=== PATIENT | female | born 1950 | race African-American/Black ===

== ENCOUNTER → 2017-04-24 | Outpatient (CLI) | payer MEDICARE, OTHER ==
[~2017-04-24] MED LIST: COUMADIN6 MG PO; LORTAB 10-3251 EACH PO; PERCOCET10 PO; VITAMIN B122500 MCG; ZESTORETIC 10-1 EAC1; [UNRECOGNIZED DRUG - OTHER]
--- NOTE | ~2017-04-24 | CR63 ---
[facility] A Service of [facility] & [facility] RADIOLOGY TEXT RESULTS PATIENT: MELINDA BUNCH LOCATION: [facility] : 54 UNIT #: [id number] AGE: [address]: Jacob Ervin MD SEX: F ORDER DR: [id number] [facility] [address] [place], [place] [address] [id number] O MR#: [id number] Acc #: [id number] NAME: MELINDA BUNCH : 1950 SEX: F STUDY DATE/TIME: 04/24/2017 14:44 UNIT: [facility] ROOM: STUDY DESCRIPTION: CR Chest 2 View Attending Physician: Jacob Ervin M.D. Referring Physician: Jacob Ervin M.D. Ordering Physician: Jacob Ervin M.D. Primary Care Physician: Walter Bustamante M.D. MEDICAL IMAGING REPORT This report is preliminary unless electronic signature is present EXAM Chest 04/24/2017 HISTORY 67-year-old female preop clearance total left knee arthroplasty. Osteoarthritis left knee. COMPARISON Chest none. FINDINGS PA and lateral chest views show normal cardiac size and configuration. Aorta and hilar structures are preserved. Bilateral lungs are expanded and clear. IMPRESSION Negative chest. Dictated by... Michael Duron M.D. THIS IS AN ELECTRONICALLY VERIFIED REPORT Michael Duron M.D. at 04/25/2017 8:13 AM MARTY/cole TD: 04/24/2017 21:45 JOB #: [id number] MEDICAL IMAGING REPORT Page 1 of 1 COPY
--- NOTE | ~2017-04-24 | EKG ---
PATIENT: MELINDA BUNCH UNIT #: [id number] Ventricular Rate: 70 BPM Atrial Rate: 70 BPM P-R Interval: 168 ms QRS Duration: 76 ms Q-T Interval: 406 ms QTC Calculation(Bezet): 438 ms P [place]: 9 degrees Calculated R [place]: 13 degrees Calculated T [place]: -6 degrees Diagnosis Line: Normal sinus rhythm Diagnosis Line: Normal ECG Diagnosis Line: No previous ECGs available Diagnosis Line: Confirmed by DOMI FRANCE MD ([id number]) on 04/24/2017 Diagnosis Line: 6:32:51 PM INTERPRETING MD: EDILMA FRASER
--- NOTE | ~2017-04-24 | CO ---
Unit #: [id number] #: [id number] Patient: MELINDA BUNCH [id number] [address] [place], [place] [address] [id number] O MR#: [id number] NAME: MELINDA BUNCH ROOM: Age: 67 Sex: F Admission Date: 04/24/2017 : 1950 Attending Physician: Jacob Ervin M.D. Primary Care Physician: Walter Bustamante M.D. Consultation Date: 04/24/2017 CONSULTATION REPORT REASON FOR CONSULTATION Preoperative medical evaluation prior to left total knee arthroplasty scheduled by Dr. Ervin for May 08, 2017. HISTORY OF PRESENT ILLNESS The patient is a 67-year-old -[place]onegas[place] female who presents to preprocedural screening for the reasons indicated above. She has no complaints at the time of this interview today. She denies upper chest, upper back, arm, neck, jaw pain or pressure. Denies dyspnea on exertion, PND, and orthopnea. She has never been evaluated for obstructive sleep apnea. She denies history of myocardial infarction, congestive heart failure, CVA, TIA, diabetes, and kidney disease. She has been evaluated by Dr. Ervin and scheduled for the above referenced procedure. PAST MEDICAL HISTORY 1. Osteoarthritis. 2. Hypertension. 3. Obesity, BMI 34. 4. History of stomach ulcer. 5. GERD. PAST SURGICAL HISTORY 1. Stomach ulcer surgery and reversal of gastric bypass surgery. 2. Gastric bypass. 3. Cholecystectomy. 4. Lasik eye surgery. 5. Laparoscopic Natalie fundoplication. Patient denies a personal and family history of complications to anesthesia. ALLERGIES Denies latex allergy and denies medication allergies. CURRENT MEDICATIONS 1. Lortab 10/325 mg tab one p.o. five times daily for pain. 2. Zestoretic 10/12.5 mg tab one p.o. daily. 3. Viviscal hair supplement two tabs p.o. daily. 4. Vitamin B12 at 1000 mcg three times weekly. SOCIAL HISTORY Denies tobacco, ETOH use, and illicit drug use. FAMILY HISTORY Unit #: [id number] #: [id number] Patient: MELINDA BUNCH Per review of Dr. Ervin's office note, hypertension and coronary artery disease. REVIEW OF SYSTEMS A 10-point review of systems was conducted and otherwise negative except as indicated under history of present illness above. PHYSICAL EXAMINATION GENERAL: A 67-year-old -[place] female, awake and alert in no acute distress. VITAL SIGNS: Temperature 97.6, heart rate 64, respiratory rate 18, blood pressure 127/81, oxygen saturation 97% on room air. HEENT: Atraumatic, normocephalic. Sclerae anicteric. No discharge from eyes, ears, or nares. LYMPH: No preauricular, postauricular, tonsillar, submental, anterior, posterior, cervical adenopathy. ENDOCRINE: No thyromegaly, thyroid nodules, or tenderness. RESPIRATORY: Clear to auscultation in all cardenas bilaterally without wheezes, rhonchi, or rales. CARDIOVASCULAR: S1, S2. Regular rate and rhythm without murmur or rub. GASTROINTESTINAL: Bowel sounds positive x4. Soft, nontender, nondistended. EXTREMITIES: No edema, cyanosis, or clubbing. MUSCULOSKELETAL: Strength 5/5 all extremities bilaterally to flexion/extension. NEUROLOGIC: Alert and oriented x3. Speech clear. Follows directions during examination. DIAGNOSTIC STUDIES LABORATORY: WBC 8.5, hemoglobin 13.7, hematocrit 39.7, platelets 233,000. Sodium 140, potassium 3.6, chloride 103, CO2 of 29, glucose 84, BUN 14, creatinine 0.7, calcium 9.6. AST 21, ALT 18, alkaline phosphatase 85, bilirubin total 0.3, total protein 7.4, albumin 3.9. Urinalysis: Leukocyte esterase 1+, nitrite negative, WBC 2+, squamous cells moderate. Crystals, calcium oxalate, urine culture and sensitivity pending at this time. PT 10.5, INR 1.0. MRSA nasal swab report pending at this time. Blood type B positive. Antibody screen negative. IMAGING: Two-view chest x-ray report pending at this time. CARDIOVASCULAR: A 12-lead EKG: Normal sinus rhythm. Normal ECG. IMPRESSION The patient is a 67-year-old female who presents to preprocedural screening for: 1. Preoperative medical evaluation prior to left total knee arthroplasty as scheduled by Dr. Ervin. The patient's Robbins Revised Cardiac Risk Index is equal to 0.4 to 1%. This represents the patient's rate of cardiac , nonfatal myocardial infarction, nonfatal cardiac arrest based on information available today. This has been discussed in detail with the patient. She wishes to proceed with surgery as scheduled at this time. 2. Hypertension: Blood pressure stable today. Will monitor trend and adjust medications and IV fluids accordingly. 3. Questionable urinary tract infection: Patient is asymptomatic. Await urine culture and sensitivity report. Will call antibiotics into her pharmacy if indicated. I have ordered a straight cath urinalysis with culture and sensitivity if indicated the a.m. of Unit #: [id number] #: [id number] Patient: MELINDA BUNCH operating room. 4. Obesity: Body mass index of 34. 5. History of stomach ulcer without hematemesis or abdominal pain. 6. Gastroesophageal reflux disease. 7. Osteoarthritis. Thank you for allowing us to participate in the care of this patient. The patient tells me she has an appointment with her dentist for cleaning tomorrow and will have her dentist fax a note of dental clearance to Dr. Ervin's office. Will gladly follow the patient for postop medical management pending order of Dr. Ervin. Dictated by... Aliya Coates A.P.R.N. for Elisa Snowden M.D. BERE/vick TD: 04/24/2017 16:37 JOB #: [id number] CONSULTATION REPORT Page 1 of 1 X Aliya Coates APRN X CONSULTATION REPORT
[2017-04-24 12:27] LABS: URINE APPEARANCE CLOUDY; URINE BILIRUBIN NEG (NEG); URINE BLOOD NEG (NEG); URINE COLOR YELLOW; URINE GLUCOSE NEG (NEG); URINE KETONE NEG (NEG); URINE LEUKOCYTE ESTERASE 1+ (NEG); URINE NITRATE NEG (NEG); URINE PROTEIN NEG (NEG); URINE SPECIFIC GRAVITY 1.023 (1.003-1.035)
[2017-04-24 12:29] LABS: CULTURE INDICATED? YES; U HYALINE CASTS AUWI 0-2 /[LPF]; URINE BACTERIA AUWI 2+ (NEGATIVE); URINE SQUAMOUS EPITHELIAL CELL MOD /[HPF]
[2017-04-24 12:32] LABS: HEMATOCRIT 39.7 % (35.0-45.0); HEMOGLOBIN 13.7 gm/dL (12.0-16.0); MEAN CELL VOLUME 85.2 FL (83-96); MEAN CORPUSCULAR HEMOGLOBIN 29.4 PG (28-34); MEAN CORPUSCULAR HGB CONC 34.5 g/dL (30-36); MEAN PLATELET VOLUME 7.7 FL (6.5-11.5); RED BLOOD COUNT 4.66 X10e (3.90-5.30); RED CELL DISTRIBUTION WIDTH 13.2 % (11.0-15.5); WHITE BLOOD COUNT 8.5 X10e3 (4.0-10.5)
[2017-04-24 12:40] LABS: PROTHROMBIN TIME (PATIENT) 10.5 SECONDS (10.0-11.7)
[2017-04-24 12:45] LABS: URBCS1 AUWI 0-2 /[HPF] (0-2); URINE CRYSTALS CALCIUM OXALATE /[HPF]
[2017-04-24 12:53] LABS: ALBUMIN SERUM 3.9 g/dL (3.5-5.0); BILIRUBIN,TOTAL 0.3 mg/dL (0.2-2.0); CALCIUM SERUM 9.6 mg/dL (8.4-10.2); CREATININE SERUM 0.7 mg/dL (0.6-1.4); GLOM FILT RATE Estimated 105.4 mL/min (>60); POTASSIUM 3.6 mmol/L (3.5-5.1); PROTEIN TOTAL SERUM 7.4 g/dL (6.0-8.3)
[2017-04-24 13:15] LABS: URINE SOURCE CLEAN CATCH
== END | disposition home or self-care (01) ==
LOC: CAMB 08:00
PROVIDERS: Orthopaedic Surgery
DX: Z01.818 Encounter for other preprocedural examination (principal); M17.12 Unilateral primary osteoarthritis, left knee; I10 Essential (primary) hypertension; K25.9 Gastric ulcer, unspecified as acute or chronic, without hemorrhage or perforation; Z79.01 Long term (current) use of anticoagulants
CPT/HCPCS: 36415; 71020; 80053; 81003; 85027; 85610; 86850; 86900; 86901; 87070; 87086; 93005

== ENCOUNTER 2017-05-08 06:29 | Inpatient (IN) | payer MEDICARE, OTHER ==
[~2017-05-08] VITALS: Ht 175.3 cm; Wt 122.3 kg
--- NOTE | ~2017-05-08 | DS ---
Unit #: [id number] #: [id number] Patient: MELINDA BUNCH [id number] [address] [place], [place] [address] [id number] MR#: [id number] NAME: MELINDA BUNCH ROOM: 450 Age: 67 Sex: F Admission Date: 05/08/2017 : 1950 Discharge Date: 05/09/2017 Attending Physician: Jacob Ervin M.D. Referring Physician: Jacob Ervin M.D. Primary Care Physician: Walter Bustamante M.D. DISCHARGE SUMMARY ADMITTING DIAGNOSIS Primary localized osteoarthritis of left knee. DISCHARGE DIAGNOSIS Primary localized osteoarthritis of left knee. PROCEDURE IN THE HOSPITAL Left total knee. HOSPITAL COURSE The patient was admitted on 05/08 and underwent a left total knee replacement. Postoperatively, she has done well. Her pain is under control with oral pain medicine. Neurovascular exam is intact. Dressing is dry. It is felt she can be discharged home today. She is weightbearing as tolerated. We will check her protime again tomorrow and Monday. She is on Coumadin 6 mg at the time of discharge. Her condition on discharge is improved. Her medications are her routine home medicines plus Coumadin and her [place] for pain. Dictated by... Jacob Ervin M.D. NOLAN/giselle TD: 05/10/2017 11:14 JOB #: [id number] DISCHARGE SUMMARY Page 1 of 1 X Jacob Ervin MD X DISCHARGE SUMMARY
--- NOTE | ~2017-05-08 | OR ---
Unit #: [id number] #: [id number] Patient: MELINDA BUNCH [id number] [address] [place], [place] [address] [id number] I MR#: [id number] NAME: MELINDA BUNCH ROOM: [facility] Date of Procedure: 05/08/2017 Admission Date: 05/08/2017 Surgeon: Jacob Ervin M.D. : 1950 Attending Physician: Jacob Ervin M.D. Referring Physician: Jacob Erivn M.D. Primary Care Physician: Walter Bustamante M.D. OPERATIVE REPORT PREOPERATIVE DIAGNOSIS Primary localized osteoarthritis of the left knee. POSTOPERATIVE DIAGNOSIS Primary localized osteoarthritis of the left knee. PROCEDURE PERFORMED Left total knee. ASSISTANTS [employer] and Wander Issa. ANESTHESIA Adductor canal block plus general. ESTIMATED BLOOD LOSS 100 mL. INDICATIONS FOR PROCEDURE This is a 67-year-old with severe pain in her left knee. She has had pain for years. It has gotten progressively worse. She has tried injections and anti-inflammatories with no relief of her discomfort. X-rays show she has [id number] with subchondral sclerosis and periarticular osteophytes. DESCRIPTION OF PROCEDURE The patient was brought to the holding room, given appropriate IV antibiotics, which included 3 g of Kefzol. An adductor canal block was performed and she was brought back to the operating room, given a general anesthetic. Tourniquet placed around the left thigh. The left leg was prepped and draped in a sterile fashion. Tourniquet was inflated to 300. A straight anterior skin incision was made. The subcutaneous dissected away and a medial arthrotomy performed. Patella was slid to the side. Osteophytes removed from the femur. The intramedullary guide was used and a 6-degree valgus cut was made on the distal femur. The femur was sized using the ATTUNE sizing guide and was found to be a size 8. The anterior-posterior cutting block was applied. Rotation checked in the knee. Anterior and posterior cuts were made along with the chamfer cuts. We then made the trochlear groove cut. Proximal tibial cut was made using an external guide and the proximal tibia was cut, and the bone fragment removed, the tibia was sized and found to be a size 7. Remaining meniscal fragments were debrided and osteophytes were removed from the posterior femoral condyle. Trial femur was applied and the drill holes were made Unit #: [id number] #: [id number] Patient: MELINDA BUNCH for lugs on the femoral component. The trial tibia was applied with a 5 mm insert. The knee came to full extension and had good stability in extension and flexion. Rotation of the tibia was marked and the external alignment guide showed appropriate alignment of the limb. The patella was grasped with 2 towel clips and it measured 25 mm thick, cut smooth at 14 and a 41 patella was the appropriate size. The 3 drill holes were made. Trial patella applied and it tracked properly. We then removed all the trials, used the drill and punch for the tibial tray. The knee was irrigated and dried while the cement was mixed. Then, all 3 components were cemented simultaneously. Once again, it was a size 8 femur cruciate retaining, size 7 tibial base plate, and a 41 patella from the [employer] (Astilbe) knee System. Any excess cement was removed. After the cement was hardened, the rest of the ropivacaine mixture was injected. We then released the tourniquet. Hemostasis obtained. It was irrigated with Betadine and bacitracin and closed using 0 Ethibond in the arthrotomy, 0 and 2-0 Vicryl in the subcutaneous, and Prineo Dermabond closure in the skin. treasury assistant, [employer], present throughout the entire case. Dictated by... Marie Polk/roxanne TD: 05/08/2017 14:49 JOB #: [id number] OPERATIVE REPORT Page 1 of 1 X Jacob Ervin MD PROCEDURE OPERATIVE NOTE
[~2017-05-08 06:29] MED LIST changes: -COUMADIN6 MG PO; -PERCOCET10 PO
[2017-05-08 07:16] LABS: PROTHROMBIN TIME (PATIENT) 10.9 SECONDS (10.0-11.7)
[2017-05-09 04:01] LABS: HEMATOCRIT 33.1 % (35.0-45.0)
[2017-05-09 04:14] LABS: INR 1.5
[2017-05-09 04:16] LABS: PROTHROMBIN TIME (PATIENT) 16.6 SECONDS (10.0-11.7)
[2017-05-09 04:36] LABS: BUN/CREATININE RATIO 21.25; CREATININE SERUM 0.8 mg/dL (0.6-1.4); GLOM FILT RATE Estimated 89.7 mL/min (>60); MAGNESIUM 1.8 mg/dL (1.6-3.0); POTASSIUM 3.8 mmol/L (3.5-5.1)
[2017-05-09] MEDS ORDERED: PERCOCET10 PO (14:03)
[2017-05-09] MEDS ORDERED: COUMADIN6 MG PO (14:04)
== END 2017-05-09 15:10 | disposition home health service (06) | DRG 470 ==
LOC: CSUR 06:29 → CPACUOF 07:50 → CSUR 08:00 → CPACUOF 08:57 → CSUR 08:57 → C4B 11:17 → CPACUOF 11:17 → C4B 05-09 15:10
PROVIDERS: Nurse Practitioner; Orthopaedic Surgery
PROC: 0SRD0J9 Replacement of Left Knee Joint with Synthetic Substitute, Cemented, Open Approach (ICD-10-PCS; principal; 2017-05-08 08:00)
DX: M17.12 Unilateral primary osteoarthritis, left knee (principal); I10 Essential (primary) hypertension; K21.9 Gastro-esophageal reflux disease without esophagitis; E66.9 Obesity, unspecified; Z68.34 Body mass index [BMI] 34.0-34.9, adult
CPT/HCPCS: 80048; 83735; 85014; 85018; 85610; 94760; 94762; 97110; 97116; 97161; 97165; 97535; C1713; C1776; G8978-GP; G8979-GP; G8980-GP; G8987-GO; G8988-GO; G8989-GO; J0131; J0171; J0690; J0735; J1100; J1170; J1650; J1885; J2250; J2405; J2795; J3010